=== PATIENT | male | born 1985 | race Caucasian/White ===

== ENCOUNTER 2022-02-28 17:25 | Emergency (ER) | payer MEDICARE, MEDICAID, SELFPAY ==
[2022-02-28 17:28] VITALS: BP 130/81; PULSE 80; RESP 19; TEMP 36.6; O2SAT 98; BMI 23.5
--- NOTE | 2022-02-28 17:45 | ED.EAR ---
HPI - Ear Problem General Chief complaint: Ear Problems Stated complaint: cant hear out of L ear Time Seen by Provider: 02/28/22 17:44 Source: patient Mode of arrival: ambulatory Limitations: no limitations History of Present Illness HPI Narrative: This is a 37-year-old male no known medical history presents to the emergency department with irritation to bilateral ears, and decreased hearing bilaterally worse on the left ear he tells me he feels like he can not hear anything out of it x3 days progressively worsening. Patient tells me frequently get swimmer's ear. He denies any trauma, tinnitus, pain, recent swimming, fevers, chills, chest pain, shortness of breath, nausea vomiting, headache, vision changes, dizziness. Patient is not on any ototoxic medications, not taking any antibiotics at this time. MD Complaint: decreased hearing Location: bilateral Duration: constant Severity: moderate Relieving factors: nothing Exacerbating factors: nothing Discharge from ear: no Treatment prior to arrival: none Related Data Allergies Allergy/AdvReac Type Severity Reaction Status Date / Time No Known Allergies Allergy Verified 02/28/22 18:04 Review of Systems Review of Systems: Constitutional : No Weight loss, No Fever, No Chills, No Fatigue, No Malaise ENT/Mouth : No sore throat, No Rhinorrhea, + decreased hearing Eyes: No Eye Pain, No Swelling, No Redness Cardiovascular : No Chest Pain, No SOB, No Dyspnea on Exertion, No Orthopnea, No Edema, No Palpitations Respiratory : No Cough, No Sputum, No Wheezing Gastrointestinal : No Nausea, No Vomiting, No Diarrhea, No Constipation, No abdominal Pain, No Hematochezia, No Melena Genitourinary : No Dysuria, No Urinary Frequency, No Hematuria, Musculoskeletal : No joint pain, No Myalgias, No Joint Swelling Skin : No Skin Lesions, No rash Neuro : No Weakness, No Numbness, No Dizziness, No Headache Psych : No Anxiety/Panic, No Depression All other systems reviewed and are negative Yes all other systems are reviewed and are negative [facility] Past Medical History Attestation statement: The following information was validated with the patient. Source: old records reviewed and nursing notes reviewed Social History Social History Advance Directives: No Advance Directives Information Provided: No Physical Exam Vital Signs: Vital Signs: Last Vital Signs Temp 98 F 02/28/22 17:28 Pulse 80 02/28/22 17:28 Resp 19 02/28/22 17:28 BP 130/81 02/28/22 17:28 Pulse Ox 98 02/28/22 17:28 BMI result Body Mass Index 23.5 Vital signs stable Appearance: Alert.? Oriented X3.? No acute distress.? Head: Normocephalic, atraumatic, no step-offs or deformities Eyes: Pupils equal, round and reactive to light.? ENT: Pharynx normal.?+ bilateral ear canals with significant cerumen impaction. Decreased hearing bilaterally with finger rub test. No pain w/ manipulation of b/l external ears. Neck: Normal inspection.? Neck supple.? CVS: Normal heart rate and rhythm.? Pulses normal.? Respiratory: No respiratory distress.? Breath sounds normal.? Abdomen: Soft and nontender.? Skin: Skin warm and dry.? Normal skin color.? Normal skin turgor.? Extremities: No lower extremity edema.? No calf ttp. 5/5 strength to bilateral upper and lower extremities Back: No midline tenderness, no C-spine tenderness, full range of motion, no CVA tenderness bilaterally Neuro: Oriented X 3.? No motor deficit.? No sensory deficit. CN 2-12 intact Course Reevaluation(s) Reevaluation #1: Irrigated bilateral ears using normal saline and a small amount of hydrogen peroxide. A large amount of cerumen was impacted in bilateral ears and was successfully taken out. Patient reports immediate improvement in hearing. Gross hearing intact bilaterally. At this time patient will be discharged home denying any headache, vision changes, ear pain, nausea, vomiting, chest pain, shortness of breath, fevers and chills. Advised him to follow-up within [facility] as he will likely require periodically ear irrigation. Time: 18:34 MDM - Ear MDM Narrative Medical decision making narrative: [id number] 37 yo male presents w/ decreased hearing b/l PE significant for cerumen impaction b/l. and decreased hearing by finger rub b/l. Plan- colace in ear to soften cermen then cerumen disimpaction. Medical Records Attestation: I reviewed the patient's medical records. Lab Data Attestation: I reviewed the patient's lab results. Critical Care Time Critical Care Time Critical Care Time: No Discharge Plan Discharge Clinical Impression: Bilateral impacted cerumen Patient Disposition: Home, Self-Care Additional Instructions: Take your medications as prescribed. If you were prescribed antibiotics today, it is important that you take your medication to their entirety, do not skip any doses, do not finish them early. Follow-up with your primary care provider this week. Follow-up with [facility] Return to the emergency department with new or worsening symptoms. Such as fevers, chills, chest pain, shortness of breath, nausea, vomiting, dizziness, headache, vision changes, lethargy, ringing in ears, blood from ears, ear pain In case of emergency call 911 You can purchase Debrox earwax removal [id number] and use these routinely. As prescribed on the box. Referrals: Isaiah Cox [Physician] - 1 week Physician,None [Primary Care Provider] - 3 days Stand Alone Forms: Work/School Release
[2022-02-28] MEDS: Docusate Sodium 100 MG/10 ML LIQUID PO (18:02)
== END 2022-02-28 18:53 | disposition home or self-care (01) ==
PROVIDERS: Emergency Provider Internal Medicine
DX: H92.03 Otalgia, bilateral (principal); H61.23 Impacted cerumen, bilateral
CPT/HCPCS: 69209; 99283

== ENCOUNTER 2022-04-10 12:25 | Emergency (ER) | payer MEDICARE, SELFPAY ==
[2022-04-10 12:32] VITALS: BP 120/76; PULSE 83; RESP 16; TEMP 36.6; O2SAT 98; BMI 22.7
== END 2022-04-10 18:41 | disposition left against medical advice (07) ==
PROVIDERS: Emergency Provider Emergency Medicine
DX: L29.9 Pruritus, unspecified (principal)
CPT/HCPCS: 99281

== ENCOUNTER 2022-04-15 11:09 | Emergency (ER) | payer MEDICARE, SELFPAY ==
[2022-04-15 11:33] VITALS: BP 144/93; PULSE 94; RESP 18; TEMP 36.8; O2SAT 98; BMI 23.5
--- NOTE | 2022-04-15 12:42 | ED.SKABFB ---
HPI - Skin/Abscess/Foreign Bdy General Chief complaint: Skin/Abscess/Foreign Body Stated complaint: bumps on right arm Time Seen by Provider: 04/15/22 12:21 Source: patient Mode of arrival: ambulatory Limitations: no limitations History of Present Illness HPI narrative: 37-year-old male presenting to the ED with complaints of 2 scab/ lesions to the right arm and 1 to the left arm he reports it is very itchy and he is unsure how he sustained this. He reports that he was not recently in the [place]. He denies any fevers or any other symptoms complaints or concerns at this time. complaint: foreign body Onset (ago): day(s) ( Few days worse today) Location: LUE and RUE Quality: constant and pruritic Pain Consistency: constant Relieving factors: none Exacerbating factors: none Context: none Associated symptoms: denies other symptoms Treatments prior to arrival: OTC topical medication Related Data Previous Rx's Medication Instructions Recorded cephalexin 500 mg capsule 500 mg PO Q6H 10 days #40 caps 04/15/22 doxycycline monohydrate 100 mg 100 mg PO BID 10 days #20 caps 04/15/22 capsule hydrocortisone 2.5 % topical 1 appl topical QD-TID PRN skin 04/15/22 ointment irritation #454 grams Allergies Allergy/AdvReac Type Severity Reaction Status Date / Time No Known Allergies Allergy Verified 02/28/22 18:04 Review of Systems Review of Systems: Constitutional : No Weight loss, No Fever, No Chills, No Night Sweats, No Fatigue, No Malaise ENT/Mouth : No Hearing loss, No Ear Pain, No Nasal Congestion, No Sinus Pain, No Hoarseness, No sore throat, No Rhinorrhea, No Swallowing Difficulty Eyes: No Eye Pain, No Swelling, No Redness, No Foreign Body, No Discharge, No Vision Changes Cardiovascular : No Chest Pain, No SOB, No Dyspnea on Exertion, No Orthopnea, No Edema, No Palpitations Respiratory : No Cough, No Sputum, No Wheezing, No Smoke Exposure, No Dyspnea Gastrointestinal : No Nausea, No Vomiting, No Diarrhea, No Constipation, No abdominal Pain, No Hematochezia, No Melena Genitourinary : no irregular bleeding, No Dysuria, No Urinary Frequency, No Hematuria, No Urinary Incontinence, No Urgency, No Flank Pain, No Urinary Flow Changes, No Hesitancy Musculoskeletal : No joint pain, No Myalgias, No Joint Swelling Skin : + Skin Lesions, No rash Neuro : No Weakness, No Numbness, No Paresthesias, No Loss of Consciousness, No Dizziness, No Headache Psych : No Anxiety/Panic, No Depression, No SI/HI/AH/VH, No Social Issues, Heme/Lymph: No Bruising, No Bleeding,No Lymphadenopathy Endocrine : No Polyuria, No Polydipsia, No Temperature Intolerance Yes all other systems are reviewed and are negative [facility] Past Medical History Attestation statement: The following information was validated with the patient. Source: old records reviewed and nursing notes reviewed Social History Social History Advance Directives: No Advance Directives Information Provided: No Physical Exam Vital Signs: Vital Signs: Last Vital Signs Temp 98.3 F 04/15/22 11:33 Pulse 94 04/15/22 11:33 Resp 18 04/15/22 11:33 BP 144/93 H 04/15/22 11:33 Pulse Ox 98 04/15/22 11:33 O2 Del Method 04/15/22 11:33 BMI result Body Mass Index 23.5 vital signs have been reviewed as normal and appeared to be correct. Blood pressure 144/93 Heart rate normal. Respiration rate normal. Temperature normal. Oxygen saturation normal. Appearance: Alert. Oriented X3. No acute distress. Head: Normal external exam. Normocephalic. Atraumatic. Eyes: PERRLA. EOMI. Conjunctiva and sclera normal. Eyelids normal. ENT: Pharynx normal. Uvula midline. Moist mucous membranes. Neck: Normal inspection. Neck supple. FROM. CVS: Normal heart rate and rhythm. Respiratory: No respiratory distress. Painless inspiration. Skin: Skin warm and dry. Normal skin color. Normal skin turgor. patient with small circular skin wounds. No surrounding erythema or streaking/ induration or fluctuance or signs of infection it appears that is actually healing. No additional rashes/lesions/lacerations noted. Extremities: Extremities exhibit normal range of motion. Extremities nontender. Neuro: Oriented X 3. No motor deficit. No sensory deficit. Reflexes normal. Normal steady gait. No focal neuro deficits noted. Vascular: + radial pulses/+ 2 distal pedal pulses/+2 dorsalis pedis b/l. Normal cap refill. No cyanosis noted to upper extremity nails and lower extremity toes nails. Course Course Course Narrative: will DC home with antibiotic treatment and topical ointment instructions return if any new or worsening symptoms follow up with primary care provider. Patient understands agrees with this plan. Discharge Plan Discharge Clinical Impression: Abrasion Patient Disposition: Home, Self-Care Instructions: Abrasion (ED) Prescriptions: New hydrocortisone 2.5 % ointment 1 appl topical QD-TID PRN (Reason: skin irritation) Qty: 454 0RF cephalexin 500 mg capsule 500 mg PO Q6H 10 Days Qty: 40 0RF doxycycline monohydrate 100 mg capsule 100 mg PO BID 10 Days Qty: 20 0RF Referrals: Physician,None [Primary Care Provider] - 2 days (your pcp) Stand Alone Forms: Work/School Release
== END 2022-04-15 12:54 | disposition home or self-care (01) ==
PROVIDERS: Emergency Provider Emergency Medicine
DX: S40.812A Abrasion of left upper arm, initial encounter (principal); S40.811A Abrasion of right upper arm, initial encounter; X58.XXXA Exposure to other specified factors, initial encounter; Y93.01 Activity, walking, marching and hiking; Y92.828 Other wilderness area as the place of occurrence of the external cause; Y99.8 Other external cause status
CPT/HCPCS: 99283

== ENCOUNTER 2022-12-29 10:52 | Emergency (ER) | payer MEDICARE, MEDICAID, SELFPAY ==
[2022-12-29 10:58] VITALS: BP 124/85; PULSE 91; RESP 18; TEMP 36.6; O2SAT 98; BMI 23.5
--- NOTE | 2022-12-29 11:26 | ED.SKABFB ---
HPI - Skin/Abscess/Foreign Bdy General Chief complaint: Skin/Abscess/Foreign Body Stated complaint: r leg red swollen Time Seen by Provider: 12/29/22 11:18 Source: patient Mode of arrival: ambulatory Limitations: no limitations History of Present Illness complaint: abscess/boil Onset (ago): hour(s) (Patient noticed it today) Location: RLE (Right inner thigh) Severity: moderate Quality: aching Pain Consistency: constant Relieving factors: none Exacerbating factors: palpation Context: none Associated symptoms: denies other symptoms Treatments prior to arrival: attempted to drain pus at home Related Data Previous Rx's Medication Instructions Recorded cephalexin 500 mg capsule 500 mg PO Q6H 10 days #40 caps 04/15/22 doxycycline monohydrate 100 mg 100 mg PO BID 10 days #20 caps 04/15/22 capsule hydrocortisone 2.5 % topical 1 appl topical QD-TID PRN skin 04/15/22 ointment irritation #454 grams acetaminophen 300 mg-codeine 30 mg 1 tab PO Q8H PRN pain #10 tabs 12/29/22 tablet cephalexin 500 mg capsule 500 mg PO Q6H 7 days #28 caps 12/29/22 doxycycline monohydrate 100 mg 100 mg PO BID 7 days #14 tabs 12/29/22 tablet Allergies Allergy/AdvReac Type Severity Reaction Status Date / Time No Known Allergies Allergy Verified 02/28/22 18:04 Review of Systems Review of Systems: Constitutional : Denies history of same, Denies any other sites involved, Denies IV drug use, Denies history of MRSA, Denies swollen glands, Denies injury, Denies Fever, Denies Chills, + Sig Pain, Denies Systemic symptoms Cardiovascular : No Chest Pain, No SOB Respiratory : No Dyspnea Gastrointestinal : No abdominal pain Musculoskeletal : No Joint Swelling Skin : + abscess with surrounding erythema, No skin laceration, No Foreign bodies, No spreading rash, Denies bites, Denies discharge, Neuro : No Weakness, No Numbness/tingling Psych : No SI/HI/thoughts of self injury Yes all other systems are reviewed and are negative [facility] Past Medical History Attestation statement: The following information was validated with the patient. Source: old records reviewed and nursing notes reviewed Social History Social History Advance Directives: No Advance Directives Information Provided: Yes Physical Exam Vital Signs: Vital Signs: Last Vital Signs Temp 98 F 12/29/22 10:58 Pulse 91 12/29/22 10:58 Resp 18 12/29/22 10:58 BP 124/85 12/29/22 10:58 Pulse Ox 98 12/29/22 10:58 O2 Del Method 12/29/22 10:58 BMI result Body Mass Index 23.5 vital signs have been reviewed as normal and appeared to be correct. Blood pressure normal Heart rate normal. Respiration rate normal. Temperature normal. Oxygen saturation normal. Appearance: Alert. Oriented X3. No acute distress. Head: Normal external exam. Normocephalic. Atraumatic. Eyes: PERRLA. EOMI. Conjunctiva and sclera normal. Eyelids normal. ENT: Pharynx normal. Uvula midline. Moist mucous membranes. Neck: Normal inspection. Neck supple. FROM. CVS: Normal heart rate and rhythm. Respiratory: No respiratory distress. Painless inspiration. Skin: Skin warm and dry. Normal skin color. Normal skin turgor. To right inner thigh patient has a draining abscess with mild surrounding erythema. No streaking noted. No additional rashes/lesions/lacerations noted. Extremities: Extremities exhibit normal range of motion. Extremities nontender. Neuro: Oriented X 3. No motor deficit. No sensory deficit. Reflexes normal. Normal steady gait. No focal neuro deficits noted. Course Course Course Narrative: IMP/Plan: abscess. No systemic toxicity, and pt looks well. + surrounding cellulitis. Not c/w nec fasc/ myositis/ DVT/ osteomyelitis. patient now status post I&D of abscess and patient tolerated procedure well. No complications. No labs or imaging indicated at this time. Will DC home antibiotics and symptomatic treatment instructions return if any new or worsening symptoms to follow up with primary care provider. Patient understands agrees this plan. Discharge Plan Discharge Clinical Impression: Cellulitis, Abscess of skin or subcutaneous tissue Patient Disposition: Home, Self-Care Instructions: Cellulitis (ED), Abscess Incision and Drainage (DC), Warm Compress or Soak (ED) Prescriptions: New cephalexin 500 mg capsule 500 mg PO Q6H 7 Days Qty: 28 0RF doxycycline monohydrate 100 mg tablet 100 mg PO BID 7 Days Qty: 14 0RF acetaminophen-codeine 300-30 mg tablet 1 tab PO Q8H PRN (Reason: pain) Qty: 10 0RF No Action hydrocortisone 2.5 % ointment 1 appl topical QD-TID PRN (Reason: skin irritation) Qty: 454 0RF cephalexin 500 mg capsule 500 mg PO Q6H 10 Days Qty: 40 0RF doxycycline monohydrate 100 mg capsule 100 mg PO BID 10 Days Qty: 20 0RF Referrals: Physician,Unknown J [Primary Care Provider] - 2 days
[2022-12-29] MEDS: Ibuprofen 800 MG TABLET PO (11:49)
[2022-12-29] MEDS: Ondansetron ODT 4 MG TAB.RAPDIS TRANSLINGU (11:54)
== END 2022-12-29 11:56 | disposition home or self-care (01) ==
PROVIDERS: Emergency Provider Emergency Medicine
DX: L03.115 Cellulitis of right lower limb (principal); L02.415 Cutaneous abscess of right lower limb; M79.651 Pain in right thigh
CPT/HCPCS: 10060; 99283; 99284

== ENCOUNTER 2023-02-01 09:37 | Emergency (ER) | payer MEDICARE, MEDICAID, SELFPAY ==
[2023-02-01 09:38] VITALS: BP 107/78; PULSE 83; RESP 18; TEMP 36.7; O2SAT 99; BMI 24.3
--- NOTE | 2023-02-01 09:46 | ED.EAR ---
HPI - Ear Problem General Chief complaint: Ear Problems Stated complaint: R ear problems Time Seen by Provider: 02/01/23 09:46 Source: patient Mode of arrival: ambulatory Limitations: no limitations History of Present Illness HPI Narrative: 38 y/o male presents to the ER for evaluation of right ear pain and hearing loss. He has had trouble with ear wax build up for the last 8 months. He went to [facility] last week and had the right ear irrigated with some relief but he states a few days later it came back and he can no longer hear. He reports hearing fine out of his left ear, no pain. No drainage from either ear. No headache, fevers, jaw pain, tooth pain, dizziness. MD Complaint: ear pain Location: right ear Duration: constant Severity: moderate Relieving factors: nothing Exacerbating factors: nothing Discharge from ear: no Associated symptoms ear: decreased hearing Treatment prior to arrival: eardrops and attempt at ear wax removal Related Data Previous Rx's Medication Instructions Recorded cephalexin 500 mg capsule 500 mg PO Q6H 10 days #40 caps 04/15/22 doxycycline monohydrate 100 mg 100 mg PO BID 10 days #20 caps 04/15/22 capsule hydrocortisone 2.5 % topical 1 appl topical QD-TID PRN skin 04/15/22 ointment irritation #454 grams acetaminophen 300 mg-codeine 30 mg 1 tab PO Q8H PRN pain #10 tabs 12/29/22 tablet cephalexin 500 mg capsule 500 mg PO Q6H 7 days #28 caps 12/29/22 doxycycline monohydrate 100 mg 100 mg PO BID 7 days #14 tabs 12/29/22 tablet Allergies Allergy/AdvReac Type Severity Reaction Status Date / Time No Known Allergies Allergy Verified 02/28/22 18:04 Review of Systems Review of Systems: Yes all other systems are reviewed and are negative [facility] Social History Social History Advance Directives: No Advance Directives Information Provided: Yes Physical Exam Vital Signs: Vital Signs: Last Vital Signs Temp 98.1 F 02/01/23 09:38 Pulse 83 02/01/23 09:38 Resp 18 02/01/23 09:38 BP 107/78 02/01/23 09:38 Pulse Ox 99 02/01/23 09:38 O2 Del Method Room Air 02/01/23 09:38 BMI result Body Mass Index 24.3 Appearance: Alert. Oriented X3. No acute distress. HEENT: normal external inspection. bilateral EACs are full of hard cerumen, unable to visualize TMs. no mastoid tenderness bilaterally. CVS: Normal heart rate and rhythm. Pulses normal. Respiratory: No respiratory distress. Skin: Skin warm and dry. Normal skin color. Normal skin turgor. No rashes. Extremities: normal inspection x4 Neuro: Oriented X 3. No motor deficit. No sensory deficit. Medications Administered Discontinued Medications Generic Name Dose Route Start Last Admin Trade Name Freq PRN Reason Stop Dose Admin Docusate Sodium 100 mg 02/01/23 09:54 02/01/23 10:01 Docusate Sodium 100 Mg/10 Ml Liquid PO 02/01/23 09:55 100 mg ONCE ONE Administration Procedures Ear Wax Removal Both Ears: Cerumenolytic Used: Colace Results: Re-examined: cerumen removed completely TM Examination: TM(s) intact, normal appearance Ear Canal Exam: atraumatic Patient Tolerated Procedure: well and no complications Complications: no problems Technique: ear canal irrigated and ear canal curetted Medical Decision Making Medical Decision Making MDM Narrative: 38 yo male presenting with right ear pain and hearing loss. Exam c/w cerumen impaction. Able to be irrigated and curretted with good visualization of TM. No infection. Tolerated well. Stable for d/c home. Differential Diagnosis Differential Diagnoses: The differential diagnosis associated with the presentation includes cerumen impaction, AOM, AOE, TM perforation Discharge Plan Discharge Clinical Impression: Bilateral impacted cerumen Patient Disposition: Home, Self-Care Instructions: Carbamide Peroxide (Into the ear) Additional Instructions: Do not use Q-tips Use over the counter Debrox drops Recommend following up with your primary care doctor for regular ear wax removal If you develop new or worsening symptoms call 911 or come back to the ER for further evaluation. Prescriptions: No Action hydrocortisone 2.5 % ointment 1 appl topical QD-TID PRN (Reason: skin irritation) Qty: 454 0RF cephalexin 500 mg capsule 500 mg PO Q6H 10 Days Qty: 40 0RF doxycycline monohydrate 100 mg capsule 100 mg PO BID 10 Days Qty: 20 0RF cephalexin 500 mg capsule 500 mg PO Q6H 7 Days Qty: 28 0RF doxycycline monohydrate 100 mg tablet 100 mg PO BID 7 Days Qty: 14 0RF acetaminophen-codeine 300-30 mg tablet 1 tab PO Q8H PRN (Reason: pain) Qty: 10 0RF
[2023-02-01] MEDS: Docusate Sodium 100 MG/10 ML LIQUID PO (10:01)
== END 2023-02-01 10:44 | disposition home or self-care (01) ==
PROVIDERS: Emergency Provider Emergency Medicine
DX: H61.23 Impacted cerumen, bilateral (principal); Z79.899 Other long term (current) drug therapy
CPT/HCPCS: 69209; 99282; 99283

== ENCOUNTER 2023-02-14 15:36 | Emergency (ER) | payer MEDICARE, MEDICAID, SELFPAY ==
--- NOTE | ~2023-02-14 | CT_ITS ---
EXAMINATION: CT ABDOMEN AND PELVIS WITHOUT CONTRAST CLINICAL INFORMATION: Left flank/left lower abdomen pain/dysuria. COMPARISON: None available. TECHNIQUE: Multidetector volumetric imaging was performed from the superior aspect of the liver through the pubic symphysis. Sagittal and coronal reformatted images were obtained on the technologist's workstation. This CT examination was performed using dose optimization techniques as appropriate, variously including the following: *Automated exposure control *Adjustment of mA and/or kV according to patient size (this includes techniques or standardized protocols for targeted exams where dose is matched to indication/reason for exam; i.e. extremities or head) *Use of iterative reconstruction technique DLP: 429 mGy-cm FINDINGS: LUNG BASES: The lung bases appear clear, with no evidence of inflammation or nodules. LIVER, GALLBLADDER, AND BILIARY TREE: The liver appears unremarkable in size, shape, and attenuation. No focal hepatic lesion or biliary ductal dilatation is appreciated. Unremarkable appearance of the gallbladder. PANCREAS: Unremarkable SPLEEN: Unremarkable ADRENAL GLANDS: Unremarkable KIDNEYS AND URETERS: The kidneys appear unremarkable in size, shape, and attenuation. No hydronephrosis, hydroureter, or calculi seen. BLADDER: Unremarkable GASTROINTESTINAL TRACT: Extensive diverticulosis predominantly involving the sigmoid colon, with induration of fat surrounding the proximal and mid portions of the sigmoid colon. No abscess, free intraperitoneal fluid or free intraperitoneal air identified. Normal-appearing distal ileum and vermiform appendix. ABDOMINAL WALL: Approximately 1.5 cm paraumbilical hernia containing only fat. LYMPH NODES: No evidence of adenopathy by size criteria. VASCULAR: Unremarkable PELVIC VISCERA: Unremarkable OSSEOUS STRUCTURES: Unremarkable CT/CT abdomen pelvis wo IV con IMPRESSION: Acute sigmoid diverticulitis.
[2023-02-14 15:39] VITALS: BP 134/71; PULSE 91; RESP 18; TEMP 36.6; O2SAT 98; BMI 25.0
--- NOTE | 2023-02-14 15:45 | ED_ITS ---
HPI - Male Genitourinary General Chief complaint: Urogenital-Male Stated complaint: lower abd pain, Related Data Previous Rx's Medication Instructions Recorded cephalexin 500 mg capsule 500 mg PO Q6H 10 days #40 caps 04/15/22 doxycycline monohydrate 100 mg 100 mg PO BID 10 days #20 caps 04/15/22 capsule hydrocortisone 2.5 % topical 1 appl topical QD-TID PRN skin 04/15/22 ointment irritation #454 grams acetaminophen 300 mg-codeine 30 mg 1 tab PO Q8H PRN pain #10 tabs 12/29/22 tablet cephalexin 500 mg capsule 500 mg PO Q6H 7 days #28 caps 12/29/22 doxycycline monohydrate 100 mg 100 mg PO BID 7 days #14 tabs 12/29/22 tablet Allergies Allergy/AdvReac Type Severity Reaction Status Date / Time No Known Allergies Allergy Verified 02/28/22 18:04 [facility], [facility] Social History Social History Advance Directives: No Advance Directives Information Provided: No Physical Exam Vital Signs: Vital Signs: Last Vital Signs Temp 97.8 F 02/14/23 15:39 Pulse 91 02/14/23 15:39 Resp 18 02/14/23 15:39 BP 134/71 02/14/23 15:39 Pulse Ox 98 02/14/23 15:39 O2 Del Method Room Air 02/14/23 15:39 BMI result Body Mass Index 25.0 Course Course Course Narrative: [facility] patient complains of several days of increasing left flank and low abdominal pain associated with dysuria with history of prior UTI CT scan and labs ordered pending full evaluation in the department Patient eloped from the ER after his CT CT results came back showing evidence of acute diverticulitis but no abscess no free fluid no free air, patient had no fever I did call the patient who picked up the phone and said he would return to the ER he said he come back this evening When I left shift at 09:00 o'clock Mr. Matson had not returned, I tried to call him to at least provide a prescription for Augmentin but there was no answer After multiple attempts to call with no answer all over several days register letter was sent Discharge Plan Discharge Clinical Impression: Abdomen soft and nontender Patient Disposition: Elopement Prescriptions: No Action hydrocortisone 2.5 % ointment 1 appl topical QD-TID PRN (Reason: skin irritation) Qty: 454 0RF cephalexin 500 mg capsule 500 mg PO Q6H 10 Days Qty: 40 0RF doxycycline monohydrate 100 mg capsule 100 mg PO BID 10 Days Qty: 20 0RF cephalexin 500 mg capsule 500 mg PO Q6H 7 Days Qty: 28 0RF doxycycline monohydrate 100 mg tablet 100 mg PO BID 7 Days Qty: 14 0RF acetaminophen-codeine 300-30 mg tablet 1 tab PO Q8H PRN (Reason: pain) Qty: 10 0RF Interventions: ED Discharge Assessment Last Done: 02/14/23 18:15 Discharge Date/Time: 02/14/23 18:16
== END 2023-02-14 18:16 | disposition left against medical advice (07) ==
PROVIDERS: Emergency Provider Emergency Medicine
DX: K57.92 Diverticulitis of intestine, part unspecified, without perforation or abscess without bleeding (principal); R10.30 Lower abdominal pain, unspecified
CPT/HCPCS: 74176; 99282; 99284

== ENCOUNTER 2023-04-02 03:56 | Emergency (ER) | payer MEDICARE, MEDICAID, SELFPAY ==
--- NOTE | ~2023-04-02 | CT_ITS ---
EXAMINATION: CT ABDOMEN AND PELVIS WITH CONTRAST CLINICAL INFORMATION: Right lower quadrant pain. COMPARISON: Periumbilical and right lower quadrant pain. TECHNIQUE: Multidetector volumetric images were obtained from the superior aspect of the liver through the pubic symphysis following administration 85 mL of Omnipaque 350 intravenous contrast. Sagittal and coronal reformatted images were obtained on the technologist's workstation. Oral contrast: No This CT examination was performed using dose optimization techniques as appropriate, variously including the following: *Automated exposure control *Adjustment of mA and/or kV according to patient size (this includes techniques or standardized protocols for targeted exams where dose is matched to indication/reason for exam; i.e. extremities or head) *Use of iterative reconstruction technique DLP: 461 mGy-cm FINDINGS: LUNG BASES: Mild elevation of the left hemidiaphragm with mild left basilar atelectasis/scarring. Small fat-containing [place] hernia medially without associated abnormality. LIVER, GALLBLADDER, AND BILIARY TREE: Unremarkable. PANCREAS: Unremarkable. SPLEEN: Unremarkable. ADRENAL GLANDS: Unremarkable. KIDNEYS AND URETERS: Right kidney small cyst in the upper pole. No nephrolithiasis or hydroureteronephrosis bilaterally. BLADDER: Significant distention extending superiorly, just inferior to the level the umbilicus. No focal mural or intraluminal abnormality. GASTROINTESTINAL TRACT: The stomach, small bowel and appendix are unremarkable. The colon is unremarkable. Mild diverticulosis is seen in the sigmoid colon without surrounding abnormality. The rectum is unremarkable. ABDOMINAL WALL: Very small fat-containing umbilical and small superior periumbilical hernias without associated abnormality. LYMPH NODES: No lymphadenopathy. VASCULAR: Unremarkable. PELVIC VISCERA: No significant prostatomegaly. Small, ovoid midline low-attenuation focus posteriorly in the prostate gland measuring up to 0.9 cm without significant change (image 76, series 3). OSSEOUS STRUCTURES: Unremarkable. CT/CT abdomen pelvis w IV con IMPRESSION: 1. No acute intra-abdominal/pelvic abnormality to explain the patient's pain. No evidence for acute appendicitis. 2. Significant distention of the urinary bladder extending superiorly, just inferior to the level the umbilicus. Correlate with urinary symptoms as this was not seen on the previous CT scan. If there is concern for urinary retention, pre and post void urinary bladder ultrasound is recommended 3. Mild sigmoid diverticulosis without evidence for acute diverticulitis. Interval resolution of previously seen acute diverticulitis. 4. Small right upper pole renal cyst demonstrates benign features not requiring follow-up. No nephrolithiasis or hydroureteronephrosis. 5. Very small fat-containing umbilical and superior periumbilical hernias without associated abnormality.
[2023-04-02 04:07] VITALS: BP 132/72; PULSE 87; RESP 18; TEMP 36.1; O2SAT 97; BMI 23.5
[2023-04-02 04:59] LABS: Basophils Absolute Auto 0.1 X10*3/uL (0.0-0.2); Basophils Percent Auto 1.3 % (0-2); Eosinophils Absolute Auto 0.5 X10*3/uL (0.0-0.4); Hematocrit 44.3 % (42.0-52.0); Hemoglobin 15.5 g/dl (14.0-18.0); Imm Gran Abs Auto 0.05 X10*3/uL (0.00-0.03); Imm Gran Pct Auto 0.6 % (0.0-0.4); Lymphocytes Absolute Auto 3.1 X10*3/uL (1.2-4.9); Lymphocytes Percent Auto 34.5 % (20-40); MANUAL DIFF FLAG NO; Mean Corpuscular Hemoglobin 31.4 pg (27.0-33.0); Mean Corpuscular Volume 89.9 fL (80.0-98.0); Mean Platelet Volume 12.4 fL (9.4-12.4); Monocytes Absolute Auto 0.5 X10*3/uL (0.1-1.2); Monocytes Percent Auto 5.3 % (2-11); Neutrophils Absolute Auto 4.7 x10*3/uL (2.0-8.3); Neutrophils Percent Auto 52.3 % (45-73); Platelet Count 127 X10*3/uL (160-400); Red Blood Count 4.93 X10*6/uL (4.60-5.80); White Blood Count 9.1 X10*3/uL (4.8-10.8)
[2023-04-02 05:08] VITALS: TEMP 36.9
--- NOTE | 2023-04-02 05:11 | PC.NURSE ---
this rn assumed care of pt from waiting room. pt changed into hospital gown placed on cardiology physician. pt awaiting to be seen by ed provider
[2023-04-02 05:18] LABS: Alanine Aminotransferase 31 U/L (0-40); Albumin Level 4.2 g/dL (3.5-5.0); Alkaline Phosphatase 99 U/L (39-117); Anion Gap 11 (12-20); Aspartate Amino Transferase 25 U/L (5-37); Bilirubin Direct 0.1 mg/dL (0.0-0.5); Bilirubin Total 0.5 mg/dL (0.0-1.0); Blood Urea Nitrogen 6 mg/dL (9-16); Calcium 9.1 mg/dL (8.4-10.2); Carbon Dioxide 26 mmol/L (22-29); Chloride 104 mmol/L (96-108); Creatinine Clr Calc Pharmacy 120.8; Estimated Glomerular Filt Rate > 60; Glucose Random 102 mg/dL (60-115); Lipase 21 U/L (8-78); Potassium 3.4 mmol/L (3.3-5.1); Sodium 138 mmol/L (135-145); Total Protein 6.8 g/dL (6.5-8.0)
--- NOTE | 2023-04-02 06:38 | ED_ITS ---
HPI - Abdominal Pain General Chief Complaint: Abdominal Pain Stated Complaint: back pain, stomach pain, fever Time Seen by Provider: 04/02/23 06:32 Source: patient Mode of arrival: ambulatory Limitations: no limitations History of Present Illness HPI narrative: 38-year-old male with history of acute diverticulitis who presents to the ER for evaluation of periumbilical abdominal pain that started yesterday around 01:00 o'clock. He was not doing anything when the pain started. He states he has been pretty constant since then. It is associated with nausea but no vomiting. He is moving his bowels normally. He is worried about a hernia around his umbilicus. He states sometimes the pain radiates to his right lower quadrant. It is worse with movement. No fevers or chills. No diarrhea. MD elicited complaint: abdominal pain Pertinent past history: diverticulitis Onset (ago): day(s) Pain Consistency: constant Location: periumbilical Severity: moderate Quality: aching Radiation: RLQ Migration to: no migration Exacerbating factors: movement Relieving factors: nothing Associated symptoms: nausea Related Data Previous Rx's Medication Instructions Recorded cephalexin 500 mg capsule 500 mg PO Q6H 10 days #40 caps 04/15/22 doxycycline monohydrate 100 mg 100 mg PO BID 10 days #20 caps 04/15/22 capsule hydrocortisone 2.5 % topical 1 appl topical QD-TID PRN skin 04/15/22 ointment irritation #454 grams acetaminophen 300 mg-codeine 30 mg 1 tab PO Q8H PRN pain #10 tabs 12/29/22 tablet cephalexin 500 mg capsule 500 mg PO Q6H 7 days #28 caps 12/29/22 doxycycline monohydrate 100 mg 100 mg PO BID 7 days #14 tabs 12/29/22 tablet Allergies Allergy/AdvReac Type Severity Reaction Status Date / Time No Known Allergies Allergy Verified 04/02/23 04:07 Review of Systems Review of Systems Yes all other systems are reviewed and are negative [facility] Social History Social History Smoked in Last 30 Days: Yes Use of substances other than those prescribed or required for medical reasons: No Advance Directives: No Advance Directives Information Provided: Yes Physical Exam ED Vital Signs: Vital Signs - 24 hr 04/02/23 04:07 04/02/23 05:08 04/02/23 07:28 Temperature 96.9 F 98.5 F 97.9 F Pulse Rate 87 79 Respiratory Rate 18 16 Blood Pressure 132/72 100/57 L Pulse Oximetry 97 97 Oxygen Delivery Method Room Air Room Air 04/02/23 08:01 Temperature 98.2 F Pulse Rate 85 Respiratory Rate 16 Blood Pressure 104/63 Pulse Oximetry 98 Oxygen Delivery Method Room Air BMI result Body Mass Index 23.5 Appearance: Alert. Oriented X3. No acute distress. Head: normocephalic, atraumatic. Eyes: Pupils equal, round and reactive to light. ENT: Pharynx normal. No tonsillar swelling or exudate. Neck: Normal inspection. Neck supple. CVS: Normal heart rate and rhythm. Pulses normal. Respiratory: No respiratory distress. Breath sounds normal. Abdomen: Soft with periumbilical and suprapubic tenderness, no palpable hernia appreciated. No rebound or guarding. Normal active +BS x4 Skin: Skin warm and dry. Normal skin color. Normal skin turgor. No rashes. Extremities: No lower extremity edema. No joint swelling. Neuro/psych: Oriented X 3. No motor deficit. No sensory deficit. CN II-XII intact. Normal speech and cognition. Medical Decision Making Medical Decision Making [facility] Narrative: 38-year-old male with history of diverticulitis presents to the ER for evaluation of periumbilical, right lower quadrant abdominal pain that started ye sterday. He on evaluation he was woken from sleep, reports that he is in moderate pain. His lab work was unremarkable. CT scan was reviewed and he has significant bladder distention, up to liver of the umbilicus. Fortunately he was able to urinate and had a postvoid residual of less than 100 cc. His urine was negative for infection. Unclear etiology of his urinary retention, but it does not require catheterization today. He was able to empty his bladder. CT scan also did show very small fat containing periumbilical hernias which are not the cause of his pain today. We discussed the results of his labs and CT scan. He is stable for discharge home with outpatient follow-up with PCP and Urology. Differential Diagnosis Differential Diagnoses: The differential diagnosis associated with the presentation includes UTI, diverticulitis, appendicitis, gastroenteritis, gastritis, SBO Incarcerated or strangulated periumbilical hernia less likely Lab Data [facility] Lab Attestation statement: I reviewed the patient's lab results. Mild thrombocytopenia, normal renal function, no major metabolic derangement 04/02/23 04:59 04/02/23 04:55 Labs: Lab Results 04/02/23 04/02/23 04/02/23 Range/Units 04:55 04:59 09:42 WBC 9.1 (4.8-10.8) X10*3/uL RBC 4.93 (4.60-5.80) X10*6/uL Hgb 15.5 (14.0-18.0) g/dl Hct 44.3 (42.0-52.0) % MCV 89.9 (80.0-98.0) fL MCH 31.4 (27.0-33.0) pg MCHC 35.0 (31.0-36.0) g/dl RDW 13.0 (11.0-16.0) % Plt Count 127 L (160-400) X10*3/uL MPV 12.4 (9.4-12.4) fL Immature Gran % (Auto) 0.6 H (0.0-0.4) % Neut % (Auto) 52.3 (45-73) % Lymph % (Auto) 34.5 (20-40) % [place] % (Auto) 5.3 (2-11) % Eos % (Auto) 6.0 H (0-4) % Baso % (Auto) 1.3 (0-2) % Lymph # (Auto) 3.1 (1.2-4.9) X10*3/uL [place] # (Auto) 0.5 (0.1-1.2) X10*3/uL Eos # (Auto) 0.5 H (0.0-0.4) X10*3/uL Baso # (Auto) 0.1 (0.0-0.2) X10*3/uL Abs Immat Gran (auto) 0.05 H (0.00-0.03) X10*3/uL Absolute Neuts (auto) 4.7 (2.0-8.3) x10*3/uL Absolute Nucleated RBC 0.000 (0.0-0.012) X10*3/uL Nucleated RBC % (auto) 0.0 (0.0-0.2) /100WBC Sodium 138 (135-145) mmol/L Potassium 3.4 (3.3-5.1) mmol/L Chloride 104 (96-108) mmol/L Carbon Dioxide 26 (22-29) mmol/L Anion Gap 11 L (12-20) BUN 6 L (9-16) mg/dL Creatinine 0.79 (0.5-1.4) mg/dL Estim Creat Clear Calc 120.8 Estimated GFR > 60 Random Glucose 102 (60-115) mg/dL Calcium 9.1 (8.4-10.2) mg/dL Total Bilirubin 0.5 (0.0-1.0) mg/dL Direct Bilirubin 0.1 (0.0-0.5) mg/dL AST 25 (5-37) U/L ALT 31 (0-40) U/L Alkaline Phosphatase 99 (39-117) U/L Total Protein 6.8 (6.5-8.0) g/dL Albumin 4.2 (3.5-5.0) g/dL Lipase 21 (8-78) U/L Urine Color Yellow Urine Appearance Clear Urine pH 8.0 (5.0-9.0) Ur Specific [place] 1.020 (1.005-1.025) Urine Protein Negative (Neg-Trace) mg/dL Urine Glucose (UA) Negative (Negative) mg/dL Urine Ketones Negative (Negative) mg/dL Urine Blood Negative (Negative) Urine Nitrite Negative (Negative) Ur Leukocyte Esterase Negative (Negative) Urine RBC 0-2 (0-2) /HPF Urine WBC 0-5 (0-5) /HPF Ur Squamous Epith Cells 0-2 (0-2) /HPF Urine Bacteria None Seen (None Seen) Hyaline Casts 0-2 (0-2) /LPF Independent Interpretation I performed an independent interpretation of an: CT Scan Interpretation: Markedly distended urinary bladder, agree with radiologist's read Radiology Impression Discussion of test interpretation with radiology: I have reviewed the radiologist's reading. Radiologist Impression: CT/CT abdomen pelvis w IV con IMPRESSION: 1.? No acute intra-abdominal/pelvic abnormality to explain the patient's pain. No evidence for acute appendicitis. 2.? Significant distention of the urinary bladder extending superiorly, just inferior to the level the umbilicus. Correlate with urinary symptoms as this was not seen on the previous CT scan. If there is concern for urinary retention, pre and post void urinary bladder ultrasound is recommended 3.? Mild sigmoid diverticulosis without evidence for acute diverticulitis. Interval resolution of previously seen acute diverticulitis. 4.? Small right upper pole renal cyst demonstrates benign features not requiring follow-up. No nephrolithiasis or hydroureteronephrosis. 5.? Very small fat-containing umbilical and superior periumbilical hernias without associated abnormality. ? External Record Review External record reviewed: Office record, Outpatient record, Prior outpatient labs and Prior outpatient radiology Prescription Management I considered prescription management with: Pain Medication Medications Administered Discontinued Medications Generic Name Dose Route Start Last Admin Trade Name Freq PRN Reason Stop Dose Admin Iohexol 100 ml 04/02/23 08:29 04/02/23 08:29 Iohexol 350 Mg/Ml 100 Ml Infus..Btl IV 04/02/23 08:30 85 ml ONCE ONE Administration Critical Care Time Critical Care Time Critical Care Time: No Discharge Plan Discharge Clinical Impression: Acute urinary retention Patient Disposition: Home, Self-Care Instructions: Urinary Retention in Men (ED) Additional Instructions: Your CT scan showed significant distention of your bladder, up to the level of your belly button. This is consistent with abnormal urinary retention. Fortunately you were able to void and empty your bladder almost completely. There is no need for a catheter for urine drainage today. Recommend follow-up with your primary care doctor as well as urologist. Your urine test did not show any evidence of infection. Your lab workup was unremarkable. If you develop new or worsening symptoms call 911 or come back to the ER for further evaluation. Prescriptions: No Action hydrocortisone 2.5 % ointment 1 appl topical QD-TID PRN (Reason: skin irritation) Qty: 454 0RF cephalexin 500 mg capsule 500 mg PO Q6H 10 Days Qty: 40 0RF doxycycline monohydrate 100 mg capsule 100 mg PO BID 10 Days Qty: 20 0RF cephalexin 500 mg capsule 500 mg PO Q6H 7 Days Qty: 28 0RF doxycycline monohydrate 100 mg tablet 100 mg PO BID 7 Days Qty: 14 0RF acetaminophen-codeine 300-30 mg tablet 1 tab PO Q8H PRN (Reason: pain) Qty: 10 0RF Referrals: [facility] [place] [facility] [Provider Group] (Urinary retention) Interventions: ED Discharge Assessment Last Done: 04/02/23 10:46 Discharge Date/Time: 04/02/23 10:47
[2023-04-02 07:28] VITALS: BP 100/57; PULSE 79; RESP 16; TEMP 36.6; O2SAT 97
--- NOTE | 2023-04-02 07:32 | PC.NURSE ---
Initial contact with pt. pt lying on stretcher, appears in no distress. awaiting CT. warm blanket applied.
[2023-04-02 08:01] VITALS: BP 104/63; PULSE 85; RESP 16; TEMP 36.8; O2SAT 98
[2023-04-02] MEDS: iohexoL 350 MG/ML 100 ML INFUS..BTL IV (08:29)
[2023-04-02 09:51] LABS: Appearance Urine Clear; Color Urine Yellow; Glucose Urine UA Negative (Negative); Leukocyte Esterase Urine Negative (Negative); Nitrite Urine Negative (Negative); Urine Blood Negative (Negative); Urine Ketones Negative (Negative); Urine Protein Negative (Neg-Trace)
[2023-04-02 09:53] LABS: Bacteria Urine None Seen (None Seen); Hyaline Casts Urine 0-2 /LPF (0-2); RBC Urine 0-2 /HPF (0-2); Squamous Epithelial Cell Urine 0-2 /HPF (0-2); WBC Urine 0-5 /HPF (0-5)
== END 2023-04-02 10:47 | disposition home or self-care (01) ==
PROVIDERS: Emergency Provider Emergency Medicine Emergency Medical Services
DX: R33.9 Retention of urine, unspecified (principal); R10.31 Right lower quadrant pain; Z79.899 Other long term (current) drug therapy
CPT/HCPCS: 36415; 51798; 74177; 80048; 80076; 81001; 83690; 85025; 99284; Q9967